=== PATIENT | female | born 2000 ===

== ENCOUNTER → 2020-08-03 | Outpatient (CLI) | payer OTHER | END | disposition home or self-care (01) | LOC: PRENATAL 09:26 | PROVIDERS: ATTEND Obstetrics & Gynecology Maternal & Fetal Medicine | DX: O35.0XX2 Maternal care for (suspected) central nervous system malformation in fetus, fetus 2 (principal); O28.1 Abnormal biochemical finding on antenatal screening of mother; O30.92 Multiple gestation, unspecified, second trimester; O35.3XX2 Maternal care for (suspected) damage to fetus from viral disease in mother, fetus 2; Z36.89 Encounter for other specified antenatal screening; Z3A.19 19 weeks gestation of pregnancy ==

== ENCOUNTER → 2020-09-06 | Outpatient (CLI) | payer OTHER | END | disposition home or self-care (01) | LOC: PRENATAL 08:00 | PROVIDERS: ATTEND Obstetrics & Gynecology Maternal & Fetal Medicine | DX: O26.842 Uterine size-date discrepancy, second trimester (principal); O28.1 Abnormal biochemical finding on antenatal screening of mother; O30.92 Multiple gestation, unspecified, second trimester; O26.852 Spotting complicating pregnancy, second trimester; Z36.89 Encounter for other specified antenatal screening; Z3A.24 24 weeks gestation of pregnancy ==

== ENCOUNTER → 2020-10-05 | Outpatient (CLI) | payer OTHER | END | disposition home or self-care (01) | LOC: PRENATAL 08:00 | PROVIDERS: ATTEND Obstetrics & Gynecology Maternal & Fetal Medicine | DX: O35.0XX2 Maternal care for (suspected) central nervous system malformation in fetus, fetus 2 (principal); O36.63X2 Maternal care for excessive fetal growth, third trimester, fetus 2; O30.93 Multiple gestation, unspecified, third trimester; Z36.89 Encounter for other specified antenatal screening; Z3A.28 28 weeks gestation of pregnancy ==

== ENCOUNTER → 2020-10-26 | Outpatient (CLI) | payer OTHER | END | disposition home or self-care (01) | LOC: PRENATAL 10:00 | PROVIDERS: ATTEND Obstetrics & Gynecology Maternal & Fetal Medicine | DX: O26.843 Uterine size-date discrepancy, third trimester (principal); O28.1 Abnormal biochemical finding on antenatal screening of mother; O30.93 Multiple gestation, unspecified, third trimester; O36.5931 Maternal care for other known or suspected poor fetal growth, third trimester, fetus 1; Z36.89 Encounter for other specified antenatal screening; Z3A.31 31 weeks gestation of pregnancy ==

== ENCOUNTER → 2020-11-16 | Outpatient (CLI) | payer OTHER | END | disposition home or self-care (01) | LOC: PRENATAL 08:00 | PROVIDERS: ATTEND Obstetrics & Gynecology Maternal & Fetal Medicine | DX: O26.843 Uterine size-date discrepancy, third trimester (principal); O28.1 Abnormal biochemical finding on antenatal screening of mother; O30.93 Multiple gestation, unspecified, third trimester; O36.5932 Maternal care for other known or suspected poor fetal growth, third trimester, fetus 2; Z36.89 Encounter for other specified antenatal screening; Z3A.34 34 weeks gestation of pregnancy ==

== ENCOUNTER 2020-11-30 13:07 | Inpatient (IN) | payer OTHER ==
[~2020-11-30] VITALS: Ht 167.6 cm; Wt 1.8 kg
[2020-11-30] MEDS ORDERED: TY PO (14:16)
[2020-12-07] MEDS ORDERED: TYLENOL325 MG (13:27)
[2020-12-07] MEDS ORDERED: HYDROXYZINE PAM25 MG (13:27)
== END 2020-12-10 14:40 | disposition home or self-care (01) | DRG 785 ==
LOC: O/R 12-07 06:35 → OB/GYN 12-07 06:35 → SURH 12-07 07:00 → OB/GYN 12-07 10:47 → SURH 12-07 12:49 → OB/GYN 12-10 14:40
PROVIDERS: ADMIT Obstetrics & Gynecology; ATTEND Obstetrics & Gynecology
PROC: 0UB70ZZ Excision of Bilateral Fallopian Tubes, Open Approach (ICD-10-PCS; 2020-12-07)
PROC: 4A1HXFZ Monitoring of Products of Conception, Cardiac Rhythm, External Approach (ICD-10-PCS; 2020-12-07)
PROC: 10D00Z1 Extraction of Products of Conception, Low, Open Approach (ICD-10-PCS; principal; 2020-12-07 07:00)
DX: O32.9XX1 Maternal care for malpresentation of fetus, unspecified, fetus 1 (principal); O32.9XX2 Maternal care for malpresentation of fetus, unspecified, fetus 2; O30.003 Twin pregnancy, unspecified number of placenta and unspecified number of amniotic sacs, third trimester; Z3A.37 37 weeks gestation of pregnancy; Z37.2 Twins, both liveborn; Z30.2 Encounter for sterilization

== ENCOUNTER 2021-02-26 13:42 | Emergency (ER) | payer OTHER ==
[~2021-02-26] VITALS: Ht 167.6 cm; Wt 61.2 kg
[~2021-02-26 13:42] MED LIST: HYDROXYZINE PAM25 MG; TY PO; TYLENOL325 MG
== END 2021-02-26 20:26 | disposition home or self-care (01) ==
LOC: ER → EMR PED 13:42 → ER 13:42
DX: K29.70 Gastritis, unspecified, without bleeding (principal); Z11.52 Encounter for screening for COVID-19